=== PATIENT | male | born 2000 | race Caucasian/White ===

== ENCOUNTER 2021-07-04 06:39 | Emergency (ER) | payer MEDICAID, SELFPAY ==
[2021-07-04] VITALS (10 sets, daily range): BP systolic 113–131; BP diastolic 75–85; PULSE 72–90; RESP 14–26; TEMP 36.9; O2SAT 97–99
--- NOTE | 2021-07-04 07:21 | ED.GENADULT ---
HPI - General Adult General Chief complaint: Unspecified Stated complaint: body aches x 3 days Time Seen by Provider: 07/04/21 07:02 Source: RN notes reviewed History of Present Illness HPI narrative: Patient presents emergency department from home for body aches. Patient states for the past 3 days he has been having generalized body aches. States that he will have feelings of feeling hot and cold but has had no measured temp. States is associated with a sore throat he denies any measured temperature, rhinorrhea, cough, abdominal pain, nausea vomiting diarrhea or any other symptoms. States he has not had his COVID-19 vaccinations Related Data Allergies Allergy/AdvReac Type Severity Reaction Status Date / Time No Known Allergies Allergy Verified 07/04/21 07:03 Review of Systems Review of Systems: Gen.: Denies fevers or chills reports body aches Eyes: Denies eye pain or visual change ENT: See HPI Respiratory: Denies shortness of breath or cough CV: Denies chest pain or palpitations GI: Denies abdominal pain nausea, emesis or diarrhea Musculoskeletal: Denies back pain or muscle pain Neuro: Denies numbness, tingling, weakness or focal weakness Skin: Denies rash Except as documented, all other systems reviewed and negative PMFSH Past Medical History Medical History (Updated 07/04/21 @ 08:30 by Marques Garcia DO) Patient denies significant medical history Social History Social History (Updated 07/04/21 @ 07:22 by Marques Garcia DO) Smoking status: Never smoker Exam Narrative: APPEARANCE: No acute distress, nontoxic, resting in bed EYES: EOMI HEENT: Normocephalic, atraumatic, TMs clear bilaterally nares patent or mucosa moist erythema the posterior pharynx the bilateral tonsils no exudate, uvula midline, tolerating own secretions RESPIRATORY: No respiratory distress Clear to auscultation bilaterally with no rhonchi wheezing or rales. CARDIOVASCULAR: Regular rate and rhythm without murmurs rubs or gallops. ABDOMINAL: Soft, nontender, nondistended, no rebound or guarding MUSCULOSKELETAl: Moves all extremities. No clubbing, cyanosis or edema. NEURO: Awake and alert. Following commands, speech normal, no focal deficits SKIN:: Warm, dry. No rashes lesions or abrasions PSYCHIATRIC: Normal affect/mood, Course Course Emergency Course: Discussed with patient results of workup and diagnosis. Discussed need for follow-up with primary care, proper use of medication, and reasons to return to the emergency department. Patient understands and agrees to current treatment plan discussed with patient Covid testing and need for self-isolation until results are returned Vital Signs Vital signs: Vital Signs Temperature 98.5 F 07/04/21 07:04 Pulse Rate 79 07/04/21 07:04 Respiratory Rate 14 07/04/21 07:04 Blood Pressure 131/85 07/04/21 07:04 Pulse Oximetry 98 07/04/21 07:04 Temperature 98.5 F 07/04/21 07:04 Pulse Rate 79 07/04/21 07:04 Respiratory Rate 14 07/04/21 07:04 Blood Pressure 131/85 07/04/21 07:04 Pulse Oximetry 98 07/04/21 07:04 Medical Decision Making MDM Narrative Medical decision making narrative: Patient presents for generalized body aches for 3 days only symptom is mild sore throat no measured fever. Vital signs within normal limits on exam lungs are clear patient's had no cough abdomen soft nontender. His current COVID-19 pandemic will test for Covid as the patient had negative influenza and strep screens in ED Vital Signs Vital Signs: Vital Signs Temperature 98.5 F 07/04/21 07:04 Pulse Rate 79 07/04/21 07:04 Respiratory Rate 14 07/04/21 07:04 Blood Pressure 131/85 07/04/21 07:04 Pulse Oximetry 98 07/04/21 07:04 Temperature 98.5 F 07/04/21 07:04 Pulse Rate 79 07/04/21 07:04 Respiratory Rate 14 07/04/21 07:04 Blood Pressure 131/85 07/04/21 07:04 Pulse Oximetry 98 07/04/21 07:04 Lab Data Labs: Influenza A Screen
[2021-07-04 20:43] LABS: SARS-CoV-2 RNA PCR Positive
== END 2021-07-04 08:52 | disposition home or self-care (01) ==
PROVIDERS: Emergency Provider Emergency Medicine; PCP Emergency Medicine
DX: U07.1 COVID-19 (principal)
CPT/HCPCS: 87081; 87804; 87880; 99283; C9803; U0003; U0005

== ENCOUNTER 2022-03-31 22:05 | Emergency (ER) | payer BC, SELFPAY ==
[2022-03-31 22:06] VITALS: BP 130/70; PULSE 70; RESP 14; TEMP 36.4; O2SAT 100
[2022-03-31 22:34] VITALS: BP 128/80; PULSE 69; RESP 18; O2SAT 100
--- NOTE | 2022-03-31 22:38 | ED.ABDPAIN ---
HPI - Abdominal Pain General Chief Complaint: Abdominal Pain <PAVEL Real Last Filed: 04/01/22 01:23> Stated Complaint: epigastric pain <PAVEL Real Last Filed: 04/01/22 01:23> Time Seen by Provider: 03/31/22 22:21 <PAVEL Real Last Filed: 04/01/22 01:23> Source: patient <PAVEL Real Last Filed: 04/01/22 01:23> Mode of arrival: ambulatory <PAVEL Real Filed: 04/01/22 01:23> Limitations: no limitations <PAVEL Real Last Filed: 04/01/22 01:23> History of Present Illness HPI narrative: Patient is a 21-year-old male who presents to the ED with report of epigastric abdominal pain. Patient reports having intermittent pain in his epigastric region since this morning. He states the pain seems to be worse after eating or drinking anything in which he feels the sensation go through his esophagus down to his stomach. Pain lasts for seconds at a time. He does note a history of acid reflux and occasionally takes TUMS for this. States his mother thought it could be his gallbladder, which prompted his presentation. Patient denies any nausea, vomiting, diarrhea, constipation, urinary symptoms, fever, difficulty breathing, CP. <PAVEL Real Last Filed: 04/01/22 01:23> Related Data Allergies/Adverse Reactions: Allergies Allergy/AdvReac Type Severity Reaction Status Date / Time No Known Allergies Allergy Verified 03/31/22 22:34 <PAVEL Real Last Filed: 04/01/22 01:23> Review of Systems Review of Systems: CONSTITUTIONAL: Denies fever, chills, or sweats. CARDIOVASCULAR: Denies chest pain, palpitations, or edema. RESPIRATORY: Denies cough or dyspnea. GASTROINTESTINAL: Reports epigastric abdominal pain. Denies constipation, nausea, vomiting, or diarrhea. GENITOURINARY: Denies dysuria or hematuria. <ANTONY RealC - Last Filed: 04/01/22 01:23> All systems reviewed & are unremarkable except as noted in HPI and below <Li Pires PA-C - Last Filed: 04/01/22 01:23> PMFSH Past Medical History Medical History: Medical History No pertinent past medical history <Li Pires PA-C - Last Filed: 04/01/22 01:23> Surgical History Surgical History: Surgical History (Updated 03/31/22 @ 23:27 by Li Pires PA-C) No pertinent past surgical history <Li Pires PA-C - Last Filed: 04/01/22 01:23> Social History Social History: Social History Smoking status: Never smoker <Li Pires PA-C - Last Filed: 04/01/22 01:23> Exam Narrative: GENERAL: Well appearing, well-nourished, non-toxic, in no acute distress. HEAD: Normocephalic, atraumatic. ENT: Pharynx clear, no exudate or tonsillar hypertrophy, uvula midline. NECK: Supple. No adenopathy, no masses. RESPIRATORY: Airway patent, respirations nonlabored. Clear to auscultation bilaterally, no rales, rhonchi, wheezing. CARDIOVASCULAR: Regular rate and rhythm without murmurs, rubs, or gallops. Peripheral pulses 2+ and equal bilaterally. ABDOMINAL: Soft, no significant tenderness throughout abdomen, no rebound or guarding, nondistended, no hepatosplenomegaly. Normoactive BS. MUSCULOSKELETAL: Moves all extremities. Strength/ROM intact without gross deformities. SKIN: Warm, dry, normal color. No rashes. NEURO: A&O X3. Speech clear. Cranial nerves II-XII grossly intact. Steady gait. No ataxic movements. PSYCHIATRIC: Appropriate mood and affect. Normal interaction. <Li Pires PA-C - Last Filed: 04/01/22 01:23> Course FURNACE COOLER/PA Physician Supervision For this patient encounter, I reviewed the FURNACE COOLER or PA documentation, treatment plan, and medical decision making <Mehdi Deng MD - Last Filed: 04/01/22 01:50> Vital
[2022-03-31 22:46] VITALS: BP 126/73; O2SAT 99
[2022-03-31 23:14] LABS: Basophils Percent Auto 0.4 % (0.2-1.2); Eosinophils Absolute Auto 0.3 K/mm3 (0-0.3); Eosinophils Percent Auto 3.6 % (0-4.4); Hematocrit 40.3 % (42.0-52.0); Hemoglobin 13.7 g/dL (14.0-18.0); Immature Granulocyte Absolute 0.01 K/mm3 (0.00-0.031); Immature Granulocyte Percent A 0.1 % (0-0.5); Lymphocytes Absolute Auto 2.71 K/mm3 (0.9-3.2); Lymphocytes Percent Auto 33.3 % (18.3-44.2); Mean Corpuscular Hemoglobin 29.9 pg (26-34); Mean Platelet Volume 9.4 fl (7.4-10.4); Monocytes Absolute Auto 0.9 K/mm3 (0.1-0.6); Monocytes Percent Auto 10.9 % (2.6-8.5); Neutrophils Absolute Auto 4.2 K/mm3 (1.3-6.7); Neutrophils Percent Auto 51.7 % (45.5-73.1); Platelet Count Result 245 k/mm3 (150-375); Red Blood Count 4.58 M/mm3 (4.6-6.20); White Blood Count 8.1 K/mm3 (4.5-10.0)
[2022-03-31 23:15] LABS: Appearance Urine Clear (Clear); Bilirubin Urine Negative (Negative); Blood Urine Trace-lysed (Negative); Color Urine Yellow (Yellow); Glucose Urine UA Negative (Negative); Ketones Urine Trace mg/dL (Negative); Leukocyte Esterase Ur Negative LEU/UL (Negative); Nitrate Urine Negative (Negative); Protein Urine Negative (Negative); Specific Grav Ur 1.025 (1.001-1.035); Urobilinogen Urine 0.2 mg/dL (<2.0)
[2022-03-31 23:19] LABS: Add Urine Microscopic? YES; Mucus Urine Rare /lpf; WBC Urine 0-3 /hpf
[2022-03-31 23:24] LABS: Alanine Aminotransferase 24 U/L (6-50); Albumin Level 4.6 g/dL (3.5-5.1); Alkaline Phosphatase 56 U/L (38-126); Anion Gap 11 mmol/L (8-16); Aspartate Amino Transferase 26 U/L (17-59); Bilirubin,Total 0.2 mg/dL (0.2-1.3); Blood Urea Nitrogen 12 mg/dL (9-20); Calcium 9.1 mg/dL (8.4-10.2); Carbon Dioxide 24 mmol/L (22-30); Chloride 104 mmol/L (98-107); Estimated CRCL calculation 153 ml/min; Estimated Glomerular Filt Rate > 60; Glucose 93 mg/dL (65-110); Lipase 50 U/L (23-300); Potassium 3.8 mmol/L (3.4-5.0); Sodium 139 mmol/L (137-145)
[2022-03-31] MEDS: BELLADONNA ALK/PHENOB ELIX 10 ML, MAG HYDROX/ALUMINUM HYD/SIMETH 30 ML, LIDOCAINE HCL 2... PO (23:27)
[2022-03-31 23:29] VITALS: BP 110/84; PULSE 92; RESP 18; O2SAT 100
--- NOTE | 2022-04-01 00:15 | PC.NURSE ---
Pt denies relief of pain to epigastrium, states my throat is numb that's for sure .
[2022-04-01 01:26] VITALS: BP 124/81; PULSE 60; RESP 18; O2SAT 100
== END 2022-04-01 01:25 | disposition home or self-care (01) ==
PROVIDERS: Physician Assistant; Emergency Provider Emergency Medicine
DX: R10.13 Epigastric pain (principal)
CPT/HCPCS: 36415; 80053; 81001; 83690; 85025; 99283; A9270